=== PATIENT | female | born 1970 | race Caucasian/White ===

== ENCOUNTER 2017-09-19 13:16 | Outpatient (CLI) | payer BC | END 2017-09-19 19:51 | disposition home or self-care (01) | LOC: SMA 13:16 | PROVIDERS: ATTEND Family Medicine | DX: Z12.31 Encounter for screening mammogram for malignant neoplasm of breast (principal) | CPT/HCPCS: 77067 ==

== ENCOUNTER 2018-10-02 07:45 | Outpatient (CLI) | payer BC | END 2018-10-02 21:12 | disposition home or self-care (01) | LOC: SMA 07:45 | DX: Z12.31 Encounter for screening mammogram for malignant neoplasm of breast (principal) | CPT/HCPCS: 77067 ==